=== PATIENT | female | born 1995 | race Caucasian/White ===

== ENCOUNTER 2018-04-21 00:57 | Emergency (ER) | payer BC ==
[2018-04-21] MEDS ORDERED: Dexamethasone 10 MG/ML SDV IM STA (02:48)
--- NOTE | 2018-04-21 03:01 | EDM.PDOC ---
ED HPI GENERAL MEDICAL PROBLEM - General Chief Complaint: Skin Complaint Stated Complaint: BURNING SENSATION ON BACK FROM LOTION Time Seen by Provider: 04/21/18 02:00 Source of Information: Reports: Patient History Limitations: Reports: No Limitations - History of Present Illness INITIAL COMMENTS - FREE TEXT/NARRATIVE: HISTORY AND PHYSICAL: History of present illness: 23-year-old female presented emergency brain with chief complaint of rash on her back. Patient states that she has a history of lower back pain and was using a over- the-counter lotion/ointment has helped in the past. States that she woke up with her back feeling very warm and itchy. She also noticed in the mirror that was red. Secondary to above she was concerned and came to the emergency department for further evaluation. She denies any known allergies and has not had a similar reaction before. States that by time she was emergency room her symptoms seem to have worked lessened. Otherwise patient is fairly healthy and takes no normal medications. On exam there is mild erythema to the back in general. There is some superficial excoriations from scratching. No noted wheals or flares. Review of systems: As per history of present illness and below otherwise all systems reviewed and negative. Past medical history: As per history of present illness and as reviewed below otherwise noncontributory. Surgical history: As per history of present illness and as reviewed below otherwise noncontributory. Social history: No reported history of drug or alcohol abuse. Family history: As per history of present illness and as reviewed below otherwise noncontributory. Physical exam: HEENT: Atraumatic, normocephalic, pupils reactive, negative for conjunctival pallor or scleral icterus, mucous membranes moist, throat clear, neck supple, nontender, trachea midline. Lungs: Clear to auscultation, breath sounds equal bilaterally, chest nontender. Heart: S1S2, regular, negative for clicks, rubs, or JVD. Abdomen: Soft, nondistended, nontender. Negative for masses or hepatosplenomegaly. Negative for costovertebral tenderness. Pelvis: Stable nontender. Genitourinary: Deferred. Rectal: Deferred. Extremities: Atraumatic, negative for cords or calf pain. Neurovascular unremarkable. Neuro: Awake, alert, oriented. Cranial nerves II through XII unremarkable. Cerebellum unremarkable. Motor and sensory unremarkable throughout. Exam nonfocal. Diagnostics: [] Therapeutics: Decadron 10 mg IM 1 Impression: Allergic reaction Plan: Please see H&P. Patient was given steroid IM here in the emergency department instructed to use Benadryl at home. Her symptoms had almost been relieved by time she was discharged. I instructed her to talk to the pharmacist about possibly trying a different cream that may not cause her allergic reaction. Patient was in agreement. She was discharged with instructions to follow-up with primary care provider and return to emergency department if she had any new or worsening symptoms. Definitive disposition and diagnosis as appropriate pending reevaluation and review of above. Back Pain Score (Numeric/FACES): 3 Past Medical History - Past Health History Medical/Surgical History: Denies Medical/Surgical History Social & Family History - Tobacco Use Smoking Status *Q: Never Smoker ED ROS GENERAL - Review of Systems Review Of Systems: ROS reveals no pertinent complaints other than HPI. ED EXAM, SKIN/RASH Exam: See Below Course - Vital Signs Last Recorded V/S: Last Vital Signs Temp 98.2 F 04/21/18 01:47 Pulse 75 04/21/18 01:47 Resp 16 04/21/18 01:47 BP 113/80 04/21/18 01:47 Pulse Ox 98 04/21/18 01:47 - Orders/Labs/Meds Meds: Medications Discontinued Medications Generic Name Dose Route Start Last Admin Trade Name Yaneli PRN Reason Stop Dose Admin Dexamethasone 10 mg 04/21/18 02:48 04/21/18 02:54 Dexamethasone IM 04/21/18 02:49 10 mg NOW STA Administration Departure - Departure Time of Disposition: 03:00 Disposition: Home, Self-Care 01 Condition: Good Clinical Impression: Allergic reaction Qualifiers: Encounter type: initial encounter Qualified Code(s): T78.40XA - Allergy, unspecified, initial encounter - Discharge Information Referrals: PCP,None [Primary Care Provider] - Additional Instructions: My general discharge The following information is given to patients seen in the emergency department who are being discharged to home. This information is to outline your options for follow-up care. We provide all patients seen in our emergency department with a follow-up referral. The need for follow-up, as well as the timing and circumstances, are variable depending upon the specifics of your emergency department visit. If you don't have a primary care physician on staff, we will provide you with a referral. We always advise you to contact your personal physician following an emergency department visit to inform them of the circumstance of the visit and for follow-up with them and/or the need for any referrals to a consulting specialist. The emergency department will also refer you to a specialist when appropriate. This referral assures that you have the opportunity for follow-up care with a specialist. All of these measure are taken in an effort to provide you with optimal care, which includes your follow-up. Under all circumstances we always encourage you to contact your private physician who remains a resource for coordinating your care. When calling for follow-up care, please make the office aware that this follow-up is from your recent emergency room visit. If for any reason you are refused follow-up, please contact the [facility] Emergency Department at and asked to speak to the emergency department charge nurse. [facility] [address] [place] [phone] Follow-up with primary care provider. Take Benadryl at home to help with allergic reaction as we discussed. Return to emergency department if any new or worsening symptoms.
== END 2018-04-21 03:09 | disposition home or self-care (01) ==
LOC: MW.ED 00:57
DX: L27.1 Localized skin eruption due to drugs and medicaments taken internally (principal); T49.95XA Adverse effect of unspecified topical agent, initial encounter
CPT/HCPCS: 96372; 99282; J1100

== ENCOUNTER 2021-11-20 21:40 | Emergency (ER) | payer BC ==
[2021-11-20] MEDS ORDERED: Orphenadrine 60 MG/2 ML Inj IM ONE (22:08)
[2021-11-20] MEDS ORDERED: Ketorolac 60 MG/2 ML SDV IM ONE (22:08)
== END 2021-11-21 00:16 | disposition home or self-care (01) ==
LOC: MW.ED 21:40
DX: M54.50 Low back pain, unspecified (principal); Z88.0 Allergy status to penicillin
CPT/HCPCS: 72100; 81025; 96372; 99283; J1885; J2360